=== PATIENT | female | born 1995 | race American Indian/Alaskan Native ===

== ENCOUNTER 2016-10-06 08:48 | Inpatient (IN) | payer MEDICAID ==
[2016-10-06] MEDS ORDERED: MINERAL OIL PO PRN (09:16)
[2016-10-06] MEDS ORDERED: ePHEDrine SULFATE IV PRN (09:16)
[2016-10-06] MEDS ORDERED: SUBLIMAZE IV PRN (09:16)
[2016-10-06] MEDS ORDERED: BRETHINE SUB-Q PRN (09:16)
[2016-10-06] MEDS ORDERED: BRETHINE IVP PRN (09:16)
[2016-10-06] MEDS ORDERED: POLYCILLIN/NS 2 GM/100 ML 100 ML IV ONE (09:16)
[2016-10-06] MEDS ORDERED: MYLICON PO PRN (09:21)
[2016-10-06] MEDS ORDERED: PITOCin/NS 20 UNIT/1000ML DRIP 1,000 ML IV SCH (10:00)
[2016-10-06] MEDS ORDERED: PITOCin/NS 30 UNIT/500ML 500 ML IV SCH (10:00)
[2016-10-06] MEDS: LACTATED RINGERS 1,000 ML IV SCH ×3 (10:12→15:45)
[2016-10-06 10:21] LABS: Hematocrit 32.7 % (30.3-42.9); Hemoglobin 10.3 gm/dl (10.1-14.3); Mean Corpuscular HGB Conc 32 % (30-34); Mean Corpuscular Hemoglobin 22 pg (28-32); Mean Corpuscular Volume 71 fl (79-97); Platelet Count 298 K/mm3 (140-440); Red Blood Count 4.62 M/mm3 (3.65-5.03); Red Cell Distribution Width 17.8 % (13.2-15.2); White Blood Count 11.9 K/mm3 (4.5-11.0)
[2016-10-06 10:32] LABS: Alanine Aminotransferase 11 units/L (7-56)
[2016-10-06] MEDS ORDERED: CYTOTEC VG PRN (12:00)
--- NOTE | 2016-10-06 12:26 | Ultrasound Report ---
Limited OB ultrasound: There is a renner gestation in cephalic position with a heart rate of 136 beats per minute. The estimated gestational ages 41 weeks 5 days. No other information supplied.
[2016-10-06] MEDS: POLYCILLIN/NS 1 GM/50 ML 50 ML IV SCH (15:44)
[2016-10-06 15:52] LABS: Bilirubin,Urine NEG (Negative); Blood,Urine SM (Negative); Ketones,Urine TR mg/dL (Negative); Leukocyte Esterase,Urine TR (Negative); Mucus,Urine FEW /HPF; Nitrite,Urine NEG (Negative); Protein,Urine <15 mg/dL mg/dL (Negative); RBC,Urine < 1.0 /HPF (0.0-6.0); Urobilinogen,Urine < 2.0 mg/dL (<2.0)
--- NOTE | 2016-10-06 16:41 | History and Physical Report ---
History of Present Illness Date of examination: 10/06/16 Date of admission: 10/06/16 08:48 History of present illness: 21 yo EDC 09/24/16 by 11 week U/S @ 41.5 weeks gestation presented this am for induction of labor for postdates. Arrived and unit full, no beds for induction available on admit and at time of H&P. Continuous FM throughout with Category 1 tracing. First trimester entry into care at 11.5 weeks gestation. course complicated by morbid obesity with eary GCT of 106, anemia with iron BID and ecoli UTI with Macrobid, she is GBS positive and has received adequate prophylaxis On admit RN exam closed/thick/-4, unknown presentation. U/s confirmed cephalic presentation. 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 Family/Genetic History: none Social history: no significant social history - Obstetrical History Expected Date of Delivery: 09/24/16 Actual Gestation: 41 Week(s) 5 Day(s) : 3 Para: 2 Hx # Term Pregnancies: 2 Number of Pregnancies: 0 Number of Living Children: 2 Medications and Allergies Allergies Allergy/AdvReac Type Severity Reaction Status Date / Time No Known Allergies Allergy Verified 09/19/16 15:47 Home Medications Medication Instructions Recorded Confirmed Last Taken Type No Known Home Medications [No 09/19/16 09/19/16 Unknown History Reported Home Medications] Active Meds: Active Medications Butorphanol Tartrate (Stadol) 2 mg IV Q2H PRN PRN Reason: Pain , Severe (7-10) Fentanyl (Sublimaze) 100 mcg IV Q2H PRN PRN Reason: Labor Pain Ampicillin Sodium (Polycillin/Ns 1 Gm/50 Ml) 50 mls @ 100 mls/hr IV Q4HR KELLY PRN Reason: Protocol Last Admin: 10/06/16 15:44 Dose: 100 mls/hr Lactated Ringer's (Lactated Ringers) 1,000 mls @ 125 mls/hr IV DIRECT KELLY Last Admin: 10/06/16 15:45 Dose: 125 mls/hr Oxytocin/Sodium Chloride (Pitocin/Ns 20 Unit/1000ml Drip) 1,000 mls @ 125 mls/ hr IV DIRECT KELLY Oxytocin/Sodium Chloride (Pitocin/Ns 30 Unit/500ml) 500 mls @ 2 mls/hr IV TITR KELLY PRN Reason: Protocol Oxytocin/Sodium Chloride (Pitocin/Ns 30 Unit/500ml) 500 mls @ 1 mls/hr IV TITR KELLY; 1 MILLIUNITS/MIN PRN Reason: Protocol Mineral Oil (Mineral Oil) 30 ml PO QHS PRN PRN Reason: Constipation Misoprostol (Cytotec) 25 mcg VG Q4H PRN PRN Reason: Labor Induction Simethicone (Mylicon) 80 mg PO Q6H PRN PRN Reason: Gas pain Review of Systems All systems: negative Genitourinary: deferred - Vital Signs Vital signs: Vital Signs Pulse BP 77 113/57 10/06/16 09:27 10/06/16 09:27 Temp Pulse Resp BP Pulse Ox 98.2 F 81 20 110/56 83 L 10/06/16 09:30 10/06/16 15:49 10/06/16 09:30 10/06/16 15:49 10/06/16 15:32 - Physical Exam Lungs: Positive: Normal air movement Abdomen: Positive: normal appearance - Obstetrical FHR: category 1 Uterine Contraction Monitor Mode: External Cervical Dilatation: 0 Cervical Effacement Percentage: 0 station: -4 Uterine Contraction Pattern: Absent Uterine Tone Measurement Phase: Resting Results Result Diagrams: 10/06/16 10:10 10/06/16 10:10 Abnormal lab results 10/06/16 10/06/16 Range/Units 10:10 10:10 WBC 11.9 H (4.5-11.0) K/mm3 MCV 71 L (79-97) fl MCH 22 L (28-32) pg RDW 17.8 H (13.2-15.2) % Creatinine 0.6 L (0.7-1.2) mg/dL All other labs normal. Assessment and Plan IUP at 41.5 weeks gestation Anemia Unfavorable Cervix Cephalic Presentation +GBS-Adequate treatment +HSV2-no lesions or prodrome Unfavorable Cervix Morbid Obesity P: Cytotec per order
[2016-10-06] MEDS ORDERED: AMBIEN PO PRN (16:45)
[2016-10-06 21:42] LABS: Lactate Dehydrogenase 178 units/L (91-180); Uric Acid 5.3 mg/dL (3.5-7.6)
[2016-10-07] MEDS: POLYCILLIN/NS 1 GM/50 ML 50 ML IV SCH ×5 (00:24→18:28)
[2016-10-07] MEDS: CYTOTEC VG PRN ×3 (00:24→04:16)
[2016-10-07] MEDS: LACTATED RINGERS 1,000 ML IV SCH ×4 (04:25→19:25)
[2016-10-07] MEDS: PITOCin/NS 30 UNIT/500ML 500 ML IV SCH ×7 (08:57→14:30)
[2016-10-07] MEDS: STADOL IV PRN ×3 (11:37→16:00)
[2016-10-07] MEDS ORDERED: ePHEDrine SULFATE ONE (19:56)
[2016-10-07] MEDS ORDERED: ePHEDrine SULFATE IV PRN (20:12)
[2016-10-07] MEDS ORDERED: NARCAN 2 MG/2 ML IV PRN (20:12)
--- NOTE | 2016-10-07 20:12 | Anesthesia Consultation ---
Anesthesia Consult and Med Hx Date of service: 10/07/16 - Airway Anesthetic Teeth Evaluation: Good ROM Head & Neck: Adequate Mental/Hyoid Distance: Adequate Mallampati Class: Class II Intubation Access Assessment: Good - Pulmonary Exam CTA: Yes - Cardiac Exam Cardiac Exam: No Murmur - Pre-Operative Health Status ASA Pre-Surgery Classification: ASA2 Proposed Anesthetic Plan: Epidural - Pulmonary Hx Asthma: Yes (no meds) COPD: No Hx Pneumonia: No - Cardiovascular System Hx Hypertension: No - Central Nervous System Hx Seizures: No Hx Psychiatric Problems: No - Endocrine Hx Renal Disease: No Hx End Stage Renal Disease: No Hx Hypothyroidism: No Hx Hyperthyroidism: No - Hematic Hx Anemia: No Hx Sickle Cell Disease: No - Other Systems Hx Alcohol Use: No
[2016-10-07] MEDS ORDERED: fentaNYL-BUPIV 2 MCG/ML-0.125% 100 ML EPIDURAL SCH (21:00)
--- NOTE | 2016-10-07 22:06 | Procedure Note ---
OB Delivery Note - Delivery Date of Delivery: 10/07/16 Surgeon: ILDEFONSO REGALADO Estimated blood loss: other (400ml) - Vaginal Delivery presentation: vertex Delivery position: OA Intrapartum events: none Delivery induction: oxytocin Delivery monitor: external FHT, internal uterine Route of delivery: Delivery placenta: expressed Delivery cord: 3 umbilical vessels Episiotomy: none Delivery laceration: none Anesthesia: epidural - A at 1 minute: 8 at 5 minutes: 9 Gender: Male (wt 8-10, placenta very adherent and appears unusally small , sent to pathology . pt informed that if there is any retained placenta a D & C may be necessary. pt verbalized understanding)
[2016-10-07] MEDS ORDERED: PHENERGAN PR PRN (23:32)
[2016-10-07] MEDS ORDERED: DERMOPLAST TP PRN (23:32)
[2016-10-07] MEDS ORDERED: DULCOLAX PR PRN (23:32)
[2016-10-07] MEDS ORDERED: PHENERGAN PO PRN (23:32)
[2016-10-07] MEDS ORDERED: MILK OF MAGNESIA PO PRN (23:32)
[2016-10-07] MEDS ORDERED: BENADRYL PO PRN (23:32)
[2016-10-07] MEDS ORDERED: LANSINOH TP PRN (23:32)
[2016-10-07] MEDS ORDERED: SODIUM CHLORIDE FLUSH SYRINGE 10 ML IV NR (23:32)
[2016-10-07] MEDS ORDERED: PITOCin/NS 20 UNIT/1000ML DRIP 1,000 ML IV SCH (23:32)
[2016-10-07] MEDS ORDERED: ZOFRAN IV PRN (23:32)
[2016-10-07] MEDS ORDERED: TYLENOL PO PRN (23:32)
[2016-10-07] MEDS ORDERED: PERCOCET 5/325 PO PRN (23:32)
[2016-10-07] MEDS ORDERED: TUCKS PAD TP PRN (23:32)
[2016-10-07] MEDS: MOTRIN PO SCH (23:46)
[2016-10-08] MEDS: MOTRIN PO SCH ×4 (06:01→23:57)
--- NOTE | 2016-10-08 07:50 | Progress Note ---
Assessment and Plan ppd 1 s/p . will d/c home tomorrow if stable Subjective - Subjective Date of service: 10/08/16 Principal diagnosis: post date delivered via Interval history: Routine pp care Patient reports: appetite normal, voiding normally, pain well controlled [place]: doing well Objective - Vital Signs Latest vital signs: Vital Signs Temp Pulse Pulse Resp BP BP Pulse Ox 10/08/16 04:30 98.6 F 93 H 20 99/50 10/08/16 00:00 98.8 F 80 20 116/55 10/07/16 23:46 18 10/07/16 23:23 79 111/57 10/07/16 23:08 88 117/60 10/07/16 22:53 111 H 113/59 10/07/16 22:38 110 H 132/87 10/07/16 22:23 88 107/63 10/07/16 22:13 98.3 F 20 10/07/16 22:08 96 H 112/69 10/07/16 21:59 78 111/58 10/07/16 21:39 71 132/58 10/07/16 21:27 64 100 10/07/16 21:25 71 121/57 10/07/16 21:22 69 100 10/07/16 21:17 93 H 100 10/07/16 21:12 68 100 10/07/16 21:08 65 102/51 10/07/16 21:07 63 100 10/07/16 21:02 63 100 10/07/16 20:57 68 100 10/07/16 20:53 70 100/50 10/07/16 20:52 68 100 10/07/16 20:47 64 100 10/07/16 20:42 66 100 10/07/16 20:37 65 100 10/07/16 20:32 68 100 10/07/16 20:27 63 100 10/07/16 20:22 68 100 10/07/16 20:21 71 104/48 10/07/16 20:18 68 143/49 10/07/16 20:17 93 H 100 10/07/16 20:15 79 122/66 10/07/16 20:13 100 H 124/61 10/07/16 20:12 92 H 100 10/07/16 20:11 90 137/64 10/07/16 20:09 111 H 154/92 10/07/16 20:08 125 H 113/54 10/07/16 20:07 127 H 96 10/07/16 20:05 137 H 122/57 10/07/16 20:03 109 H 121/59 10/07/16 20:02 97 H 92 10/07/16 20:01 103 H 131/70 10/07/16 19:59 93 H 129/68 10/07/16 19:57 88 127/67 100 10/07/16 19:55 94 H 127/69 10/07/16 19:53 100 H 131/75 10/07/16 19:52 89 98 10/07/16 19:51 90 130/68 10/07/16 19:49 72 147/73 10/07/16 19:47 102 H 138/64 99 10/07/16 19:45 94 H 137/59 10/07/16 19:43 96 H 150/69 10/07/16 19:42 103 H 100 10/07/16 19:41 110 H 152/71 10/07/16 19:39 117 H 157/89 10/07/16 19:37 108 H 100 10/07/16 19:32 92 H 100 10/07/16 19:29 97.9 F 22 10/07/16 19:08 84 152/76 10/07/16 18:39 18 10/07/16 18:09 78 121/59 10/07/16 17:09 83 124/63 10/07/16 16:15 79 101/51 10/07/16 15:08 78 112/56 10/07/16 14:32 69 114/54 10/07/16 14:09 75 123/62 10/07/16 14:06 74 114/58 10/07/16 13:17 68 136/85 10/07/16 13:07 60 132/72 10/07/16 12:35 66 133/81 10/07/16 12:08 64 133/64 10/07/16 11:08 59 L 117/62 10/07/16 10:52 57 L 118/56 10/07/16 09:27 57 L 116/61 10/07/16 09:07 73 96/51 10/07/16 08:58 98.1 F 68 68 20 94/50 94/50 10/07/16 08:07 62 109/61 Intake and Output 10/07/16 10/08/16 10/08/16 22:59 06:59 14:59 Intake Total 1050 2467 Output Total 150 50 Balance 900 2417 Intake: IV 1050 2467 Polycillin/Ns 1 gm/50 ml 50 50 ml @ 100 mls/hr IV Q4HR KELLY Rx#:[id number] Lactated Ringers 1,000 ml 1000 1100 @ 125 mls/hr IV DIRECT KELLY Rx#:[id number] PITOCin/NS 20 UNIT/1000ML 867 DRIP 1,000 ML @ 125 mls/ hr IV DIRECT KELLY Rx#: [id number] PITOCin/NS 30 UNIT/500ML 500 500 ML @ 1 MILLIUNITS/MIN 1 mls/hr IV TITR KELLY Rx# :[id number] Output: Urine 150 50 Void 150 50 Other: Total, Output Amount 150 50 Estimated Blood Loss 400 - Exam Breasts: Present: deferred Cardiovascular: Present: Regular rate, Normal S1, Normal S2 Lungs: Present: Clear to auscultation Abdomen: Present: normal appearance, soft Vulva: both: normal Uterus: Present: normal, firm Extremities: Present: normal Deep Tendon Reflex Grade: Normal +2 Incision: Present: normal, dry, intact
--- NOTE | 2016-10-08 07:54 | Discharge Summary ---
Providers - Providers Date of Admission: 10/06/16 08:48 Date of discharge: 10/09/16 Attending physician: BJORN ALFRED MD Primary care physician: ILDEFONSO DON Hospitalization Reason for admission: induction of labor Delivery: Procedure details: s/p . doing well. Episiotomy: none Laceration: none Other procedures: none complications: none Discharge diagnosis: IUP at term delivered [place] baby: male Hospital course: routine pp course Condition at discharge: Good Disposition: DISCHARGED TO HOME OR SELFCARE - Discharge Diagnoses (1) Post-dates , delivered, current hospitalization Status: Acute (2) (normal spontaneous vaginal delivery) Status: Acute (3) Anemia Status: Acute Comment: secondary to the blood loss at delivery Plan - Discharge Medications Prescriptions: Ferrous Sulfate [Feosol 325 MG tab] 325 mg PO BID #60 tablet Ibuprofen [Motrin 800 MG tab] 800 mg PO Q8HR PRN #30 tablet PRN Reason: Pain oxyCODONE /ACETAMINOPHEN [Percocet 5/325] 1 tab PO Q6HR PRN #30 tablet PRN Reason: Pain - Provider Discharge Summary Activity: routine, no sex for 6 weeks, no heavy lifting 4 weeks, no strenuous exercise Diet: routine Instructions: routine Additional instructions: [] Smoking cessation referral if applicable(refer to patient education folder for contact #) [] Refer to [facility] Booklet Call your doctor immediately for: * Fever > 100.5 * Heavy vaginal bleeding ( >1 pad per hour) * Severe persistent headache * Shortness of breath * Reddened, hot, painful area to leg or breast * Drainage or odor from incision. * Keep incision clean and dry at all times and follow doctor's instructions regarding bathing/showering - Follow up plan Follow up: ILDEFONSO DON MD [Primary Care Provider] - 6 Weeks
[2016-10-08 11:06] LABS: Hematocrit 23.6 % (30.3-42.9); Hemoglobin 7.4 gm/dl (10.1-14.3)
[2016-10-08] MEDS ORDERED: FEOSOL PO SCH (14:00)
[2016-10-09] MEDS: MOTRIN PO SCH (06:09)
[2016-10-09 08:19] VITALS: BP 133/55
== END 2016-10-09 13:00 | disposition home or self-care (01) | DRG 775 ==
LOC: APU 08:48 → LD 18:55 → OB 10-08 00:24
PROVIDERS: ADMIT Obstetrics & Gynecology; ATTEND Obstetrics & Gynecology
PROC: 10E0XZZ Delivery of Products of Conception, External Approach (ICD-10-PCS; principal; 2016-10-07)
PROC: 3E033VJ Introduction of Other Hormone into Peripheral Vein, Percutaneous Approach (ICD-10-PCS; 2016-10-07)
PROC: 3E0S3CZ (ICD-10-PCS; 2016-10-07)
PROC: 3E033VJ Introduction of Other Hormone into Peripheral Vein, Percutaneous Approach (ICD-10-PCS; 2016-10-07)
PROC: 00HU33Z Insertion of Infusion Device into Spinal Canal, Percutaneous Approach (ICD-10-PCS; 2016-10-07)
DX: O48.0 Post-term pregnancy (principal); O99.214 Obesity complicating childbirth; E66.01 Morbid (severe) obesity due to excess calories; O99.52 Diseases of the respiratory system complicating childbirth; J45.909 Unspecified asthma, uncomplicated; O32.9XX0 Maternal care for malpresentation of fetus, unspecified, not applicable or unspecified; B00.9 Herpesviral infection, unspecified; D62 Acute posthemorrhagic anemia; Z68.43 Body mass index [BMI] 50.0-59.9, adult; Z3A.41 41 weeks gestation of pregnancy; Z37.0 Single live birth; O99.019 Anemia complicating pregnancy, unspecified trimester; D64.9 Anemia, unspecified; O23.40 Unspecified infection of urinary tract in pregnancy, unspecified trimester; O99.820 Streptococcus B carrier state complicating pregnancy; O98.519 Other viral diseases complicating pregnancy, unspecified trimester
CPT/HCPCS: 36415; 76815; 81001; 82565; 83615; 84450; 84460; 84550; 85014; 85018; 85027; 86850; 86900; 86901; 88307; J0290; J0595; J2590; J3010; J7120

== ENCOUNTER 2016-10-11 08:27 | Inpatient (IN) | payer MEDICAID ==
[2016-10-11 09:16] LABS: Basophils % (Auto) 0.3 % (0.0-1.8); Eosinophils % (Auto) 1.7 % (0.0-4.3); Hematocrit 21.2 % (30.3-42.9); Hemoglobin 6.7 gm/dl (10.1-14.3); Mean Corpuscular HGB Conc 31 % (30-34); Mean Corpuscular Volume 73 fl (79-97); Platelet Count 264 K/mm3 (140-440); Red Blood Count 2.93 M/mm3 (3.65-5.03); Red Cell Distribution Width 17.4 % (13.2-15.2); White Blood Count 19.1 K/mm3 (4.5-11.0)
[2016-10-11 09:19] LABS: Mean Corpuscular Hemoglobin 23 pg (28-32)
[2016-10-11] MEDS ORDERED: NACL 0.9% 500 ML 500 ML IV ONE (10:10)
--- NOTE | 2016-10-11 10:32 | Emergency Department Report ---
HPI - General Chief Complaint: Vaginal Bleeding Time Seen by Provider: 10/11/16 10:05 - HPI HPI: This is a 21-year-old [place]ian female presents to the emergency department with complaint of vaginal bleeding and "something in my vagina" for the past 2 days. The patient gave via vaginal delivery 4 days ago and was discharged 2 days ago. She is currently . There were no previous Complications with the or delivery. She said that yesterday morning all of a sudden she felt some pressure in the vagina and tried to feel was in there and it felt more like tissue. Since that time she has had a moderate amount of vaginal bleeding and has gone through 3 pads already today. She denies any chest pain, shortness of breath, headache, vision change, fever, nausea or vomiting. She is not taken anything for symptoms prior to presentation. She follows with [facility]. ED Past Medical Hx - Past Medical History Previous Medical History?: Yes Hx Hypertension: No Hx Congestive Heart Failure: No Hx Diabetes: No Hx Deep Vein Thrombosis: No Hx Renal Disease: No Hx Sickle Cell Disease: No Hx Seizures: No Hx Asthma: Yes (no meds) Hx COPD: No Hx HIV: No Additional medical history: Vaginal delivery x 3 - Surgical History Past Surgical History?: No - Social History Smoking Status: Never Smoker Substance Use Type: Prescribed - Medications Home Medications: Home Medications Medication Instructions Recorded Confirmed Last Taken Type No Known Home Medications [No 10/11/16 10/11/16 Unknown History Reported Home Medications] ED Review of Systems ROS: Stated complaint: PAIN/BLEEDING/FB OUT OF VAGINA Other details as noted in HPI Comment: All other systems reviewed and negative Constitutional: denies: chills, fever Eyes: denies: eye pain, eye discharge, vision change ENT: denies: ear pain, throat pain Respiratory: denies: cough, shortness of breath, wheezing Cardiovascular: denies: chest pain, palpitations Gastrointestinal: denies: abdominal pain, nausea, diarrhea Genitourinary: other (vaginal bleeding). denies: urgency, discharge Musculoskeletal: denies: back pain, joint swelling, arthralgia Skin: denies: rash, lesions Neurological: denies: headache, weakness, paresthesias Physical Exam - Physical Exam Vital Signs: Vital Signs 10/11/16 10/11/16 08:32 10:19 Temperature 99 F Pulse Rate 112 H 85 Respiratory 20 18 Rate Blood Pressure 160/99 Blood Pressure 138/85 [Left] O2 Sat by Pulse 100 100 Oximetry Physical Exam: GENERAL: The patient is well-developed well-nourished. HEENT: Normocephalic. Atraumatic. Extraocular motions are intact. Patient has moist mucous membranes. Pupils equal reactive to light bilaterally. NECK: Supple. Trachea is midline. CHEST/LUNGS: Clear to auscultation. There is no respiratory distress noted. HEART/CARDIOVASCULAR: Regular. There is no tachycardia. There is no gallop rub or murmur. ABDOMEN: Abdomen is soft, nontender. Patient has normal bowel sounds. There is no abdominal distention. SKIN: There is no rash. There is no edema. There is no diaphoresis. NEURO: The patient is awake, alert, and oriented. The patient is cooperative. The patient has no focal neurologic deficits. The patient has normal speech and gait. MUSCULOSKELETAL: There is no tenderness or deformity. There is no limitation range of motion. There is no evidence of acute injury. : There is mild to moderate bright red blood seen in the vaginal vault. There is a large area of tissue seen in the vagina that is not definitively identifiable but has an appearance consistent with placental tissue. ED Course Vital Signs 10/11/16 10/11/16 08:32 10:19 Temperature 99 F Pulse Rate 112 H 85 Respiratory 20 18 Rate Blood Pressure 160/99 Blood Pressure 138/85 [Left] O2 Sat by Pulse 100 100 Oximetry - Consultations Consultation #1: I spoke with Dr. Tran of [facility] and she is agreed with the admission for the patient to their service. However Dr. Elena is medical oncologist and make him to the emergency department to do a pelvic or physical examination. In the meantime, Dr. Tran is asked for a transvaginal ultrasound for further evaluation. 10/11/16 11:11 ED Medical Decision Making - Lab Data Result diagrams: 10/11/16 09:01 10/11/16 10:19 - Medical Decision Making 21-year-old female who is 4 days status post vaginal delivery presents with some type of tissue or foreign body the vagina and a large amount of vaginal bleeding. Patient's labs are abnormal as the patient has a hemoglobin of 6.7 and a leukocytosis of 19,000. 2 units of packed red blood cells were ordered for transfusion. On physical exam there does appear to be some type of tissue, but no foreign body, seen in the vagina but does appear consistent with placenta. After seeing this, I went back and looked in the reports of the vaginal delivery and there was some concern at that time that there was a unusually small placenta seen and that there could be a possibility of some retained tissue. Once again, the tissue in the vagina is not definitively identifiable but along with the patient's vaginal bleeding and low hemoglobin, she will need admission. Dr. Tran is aware and has accepted the patient for admission. A transvaginal ultrasound has been ordered. - Differential Diagnosis retained products of conception, vaginal laceration, prolapsed uterus, fore Critical Care Time: No Critical care attestation.: If time is entered above; I have spent that time in minutes in the direct care of this critically ill patient, excluding procedure time. ED Disposition Clinical Impression: Complications following delivery, Retained products of conception, Vaginal bleeding, Blood loss anemia Disposition: OP ADMITTED IP TO THIS HOSP Is pt being admited?: Yes Does the pt Need Aspirin: No Condition: Stable Time of Disposition: 11:32
[2016-10-11 10:43] LABS: Anion Gap 19 mmol/L; Blood Urea Nitrogen 8 mg/dL (7-17); Calcium 8.4 mg/dL (8.4-10.2); Carbon Dioxide 23 mmol/L (22-30); Chloride 100.4 mmol/L (98-107); Glucose 73 mg/dL (65-100); Potassium 3.8 mmol/L (3.6-5.0); Sodium 139 mmol/L (137-145)
[2016-10-11 11:04] LABS: Bilirubin,Urine NEG (Negative); Blood,Urine LG (Negative); Ketones,Urine NEG (Negative); Leukocyte Esterase,Urine LG (Negative); Nitrite,Urine NEG (Negative); Urobilinogen,Urine < 2.0 mg/dL (<2.0)
[2016-10-11 11:11] LABS: RBC,Urine > 182.0 /HPF (0.0-6.0)
[2016-10-11 11:12] LABS: WBC,Urine > 182.0 /HPF (0.0-6.0)
[2016-10-11] MEDS ORDERED: CYTOTEC VG ONE ×2 (11:16→12:00)
[2016-10-11] MEDS ORDERED: NARCAN 0.4 MG/1 ML IV PRN (11:17)
[2016-10-11] MEDS ORDERED: ROCEPHIN/NS 1 GM/50 ML 50 ML IV ONE (11:28)
[2016-10-11] MEDS ORDERED: TYLENOL PO ONE (11:33)
--- NOTE | 2016-10-11 11:38 | Admit Criteria Form ---
Admission Criteria Documentation: OBSTETRIC AND GYNECOLOGIC DISEASE GRG Clinical Indications for Admission to Inpatient Care (Place 'X' for any and all applicable criteria): Hospital admission is needed for appropriate care of the patient because of ANY ONE of the following (1)(2)(3): [ ]I. Hemodynamic instability, as indicated by ALL of the following (1)(2)(3)( 4)(5): [ ]a) Vital signs or other findings not as expected for chronic patient condition or baseline [ ]b) Instability indicated by ANY ONE of the following: [ ]i) Hypotension [ ]ii) Symptomatic tachycardia unresponsive to treatment (eg, analgesia, fluids, sedation as indicated) [ ]iii) Inadequate perfusion indicated by ANY ONE of the following: [ ]A. Lactic acidosis (greater than 2 mmol/ L) [ ]B. New abnormal capillary refill ( greater than 3 seconds) [ ]C. Reduced urine output [ ]D. New altered mental status [ ]iv) Orthostatic vital sign changes unresponsive to treatment (eg, fluids) [ ]v) Multiple IV fluid boluses required to maintain adequate blood pressure or perfusion [ ]vi) IV inotropic or vasopressor medication required to maintain adequate blood pressure or perfusion [ ]II. Obstetric infection requiring hospitalization indicated by ANY ONE of the following(13)(14): [ ]a) Chorioamnionitis [ ]b) Endometritis (except mild endometritis) [ ]c) Pelvic abscess [ ]d) Peritonitis [ ]e) Septic pelvic thrombophlebitis [ ]III. Amniotic fluid or pulmonary embolism(4)(5)(6) [ ]IV. Suspected peritonitis or ectopic requiring monitoring beyond scope of 24 hours or observation care(7)(8) [ ]V. compromise requiring hospitalization indicated by ALL of the following(9)(10): [ ]a) compromise indicated by ANY ONE of the following(11): [ ]i) Abnormal heart rate monitoring [ ]ii) Abnormal contraction stress test [ ]iii) Abnormal biophysical profile [ ]iv) Abnormal Doppler flow in vessels (ie, Doppler velocimetry) (12) [ ]b) Persistence of compromise indicators during evaluation and observation monitoring [ ]. Ovarian hyperstimulation syndrome requiring hospitalization[A] indicated by ALL of the following(15): [ ]a) Recent ovarian stimulation with gonadotropins, or evidence on ultrasound of spontaneous emergence of large number of ovarian follicles [ ]b) Evidence of severe ovarian hyperstimulation syndrome indicated by ANY ONE of the following: [ ]i) Abdominal pain unresponsive to oral therapy [ ]ii) Acute respiratory distress syndrome [ ]iii) Electrolyte imbalance ( eg, hyponatremia, hyperkalemia) [ ]iv) Elevated liver enzymes [ ]v) Evidence of thromboembolism [ ]vi) Hemoconcentration (hematocrit greater than 45 % (0.45)) [ ]vii) Inability to maintain oral intake adequate to prevent hemoconcentration [ ]viii) Marked hypotension from baseline (eg, SBP 20 mmHg below patients usual pressure) [ ]ix) Oliguria or anuria [ ]x) Ovarian torsion [ ]xi) Pleural or pericardial effusion on x-ray or echocardiogram [ ]xii) Rapid increase in serum creatinine to greater than 1.2 mg/dL (106 micromoles/L) or creatinine clearance less than 50 mL/min/1.73m2 (0.84 mL/ sec/1.73m2) [ ]xiii) Ruptured ovarian cyst with hemorrhage [ ]xiv) Severe abdominal pain or peritoneal signs [ ]xv) Tense ascites that cannot be managed with paracentesis in outpatient setting [ ]VII.Pelvic infection requiring hospitalization indicated by ANY ONE of the following (16): [ ]a) Outpatient treatment has failed or is not appropriate (eg, inpatient monitoring required) [ ]b) Pelvic abscess [ ]c) Surgical emergency cannot be excluded (eg, rigid abdomen) [ ]d) Vomiting precluding outpatient and observation care management VIII. loss complications requiring inpatient medical treatment indicated by ANY ONE of the following (4)(7)(9): [ ]a) Fever [ ]b) Peritonitis [ ]c) Sepsis [ ]d) Severe abdominal pain [ ]IX. or patient requiring monitoring for severe heart failure, pulmonary disease, or other comorbid condition (eg, peripartum cardiomyopathy) (4)(17) [ ]X. patient with rupture of membranes requiring hospitalization indicated by ANY ONE of the following: [ ]a) Chorioamnionitis, cloudy amniotic fluid, or other evidence of infection [ ]b) compromise or other need for monitoring (11) [ ]c) Gestation longer than 23 weeks and ANY ONE of the following: [ ]i) Abnormal (noncephalic) presentation [ ]ii) Inadequate home environment (eg, home too far from hospital, unable to rapidly return to hospital) [ ]d) Temperature greater than 100.4 degrees F (38 degrees C)( oral) [ ]e) Threatened labor requiring monitoring beyond scope (eg, over 24 hours) of observation Care [X ] XI. complications, including severe lacerations, infections, or retained placenta (19) [X ] XII.Uterine bleeding with high-risk features indicated by ANY ONE of the following (4): [X ]a) Active major hemorrhage (eg, hemorrhage) [ ]b) Coagulopathy with active bleeding [ ]c) Gestational trophoblastic disease (eg, molar ) (20 ) [ ]d) (longer than 23 weeks) and ANY ONE of the following: [ ]i) Pain [ ]ii) Placental abruption, known or suspected [ ]iii) Placenta accrete, known or suspected(21) [ ]iv) Placenta previa, known or suspected [ ]v) Vasa previa [ ]e) Severe anemia [ ]XIII. Obstetric or Gynecologic Disease, condition or symptom for which ANY ONE of the following: [ ]a) Emergency and observation care have failed or are not considered appropriate ( Also use General Criteria: Observation Care Criteria as appropriate) [ ]b) Presence of a General Admission Criteria or Pediatric General Admission Criteria The original [facility] [employer] 49 content created by [facility] has been revised. The portions of the content which have been revised are identified through the use of italic text or in bold, and [facility] has neither reviewed nor approved the modified material.All other unmodified content is copyright [facility]. Please see references footnoted in the original [facility] edition 2016 Admission Criteria Met: Yes
[2016-10-11] MEDS ORDERED: TYLENOL ONE (11:54)
[2016-10-11] MEDS ORDERED: PITOCin/NS 20 UNIT/1000ML DRIP 1,000 ML IV SCH (12:00)
[2016-10-11] MEDS ORDERED: SODIUM CHLORIDE FLUSH SYRINGE 10 ML IV SCH (12:00)
[2016-10-11] MEDS ORDERED: D5W/0.45% NACL/KCL 20 MEQ 1,000 ML IV SCH (12:00)
--- NOTE | 2016-10-11 12:55 | Ultrasound Report ---
ULTRASOUND PELVIC COMPLETE ULTRASOUND TRANSVAGINAL HISTORY: Vaginal bleeding, vaginal delivery 4 days ago. TECHNIQUE: Transabdominal and transvaginal ultrasound with color and spectral doppler interrogation. The uterus measures 20 x 9 x 10 cm. No uterine fibroids are appreciated. The endometrium is thickened and complex measuring up to 3 cm. The right ovary measures 3.1 x 1.9 x 3.4 cm. The left ovary measures 3.6 x 2.0 x 3.2 cm per no adnexal cyst or mass. No pelvic fluid collection. IMPRESSION: Complex and thickened endometrium measuring up to 3 cm. With the given history, retained products of conception should be considered. Please correlate with the patient's clinical presentation.
[2016-10-11] MEDS: MORPHINE IV PRN ×2 (14:23→19:34)
--- NOTE | 2016-10-11 15:09 | Event Note ---
Date: 10/11/16 (vaginal bleeding PP) This is a lady s/p vaginal delivery PPD#4 with vaginal bleeding. Us showed a 3cm tissue vs blood correlation with clinical findings. I evaluated patient and noted that she had minimal bleeding HCT 6 s/p 1 U prbc transfusing 2nd unit. A sterile speculum placed in vualt and noted large tissue at the os a ring forceps used to gengly grapsa yellow membrane tissue with several clots size of golf ball removed and sent to pathology. Excellent hemostasis noted. rocephin given and cytotoec 800 ug given. Pain meds 90 morphine). patient tolerated procedure well. will continue close observation.
[2016-10-11] MEDS ORDERED: NACL 0.9% 500 ML 500 ML ONE (19:27)
--- NOTE | 2016-10-11 23:04 | Event Note ---
Date: 10/11/16 Nurse called with elevated temperature of 103. During day patient had sustained low grade temperatures. Patient deneis any n,v,f, chills. she is tolerating diet and denies any pain VS T 103 CVS: RRR s1 s2 lungs CTA no wheezes no crackles abd: soft uterus fiome below umb ext: no c/c/ e no calf tenderness pelvic: min lochia ( discharge and retained POC was fouls smelling when removed suspect endomeyometiritis 1. tylenol q4 2. clind a and gent started 3. start ivf 4. continue monitor closely 5. cbc in am
[2016-10-12] MEDS: NACL 0.9% 1000 ML 1,000 ML IV SCH ×2 (00:02→18:40)
[2016-10-12] MEDS: CLEOCIN 900 MG/50 mL 50 ML IV SCH ×3 (00:03→16:16)
[2016-10-12 01:02] LABS: Hematocrit 27.6 % (30.3-42.9); Hemoglobin 8.8 gm/dl (10.1-14.3)
[2016-10-12] MEDS ORDERED: GARAMYCIN IV SCH (02:00)
[2016-10-12] MEDS ORDERED: NACL 0.9% IV SCH (02:00)
[2016-10-12] MEDS: MORPHINE IV PRN (02:13)
[2016-10-12] MEDS: MOTRIN PO PRN (09:13)
[2016-10-12] MEDS: NORCO 5/325 PO PRN (18:38)
[2016-10-13] MEDS: CLEOCIN 900 MG/50 mL 50 ML IV SCH ×2 (00:13→07:54)
[2016-10-13] MEDS: MOTRIN PO PRN (00:17)
[2016-10-13] MEDS: NORCO 5/325 PO PRN (00:18)
[2016-10-13] MEDS ORDERED: GARAMYCIN 400 MG in NACL 0.9% 100 ML IV SCH (06:00)
[2016-10-13 08:56] VITALS: BP 104/72
--- NOTE | 2016-10-13 09:12 | Progress Note ---
Assessment and Plan A: Retained Placenta, PPH s/p blood transfusion, Endometritis afebrile for 24 hrs P: Discharge today on Augmentin with follow up in 2 wks. Subjective - Subjective Date of service: 10/13/16 Principal diagnosis: Retained placenta, PPH, Endometritis Interval history: Pt denies fever and chills and desires to go home. Patient reports: appetite normal, voiding normally, pain well controlled, flatus , ambulating normally, no nauseated Objective - Vital Signs Latest vital signs: Vital Signs Temp Pulse Pulse Resp BP BP 10/13/16 07:27 97.9 F 76 20 104/72 10/13/16 06:10 98.4 F 59 L 18 120/76 10/13/16 01:35 97.5 F L 63 20 129/68 10/12/16 21:05 98.9 F 79 20 133/62 10/12/16 16:39 98.4 F 73 18 114/55 10/12/16 12:08 97.7 F Intake and Output 10/12/16 10/13/16 10/13/16 22:59 06:59 14:59 Intake Total 1520 1185 Output Total 800 600 Balance 720 585 Intake: IV 800 825 CLEOCIN 900 MG/50 mL 50 50 50 ML @ 100 mls/hr IV Q8H KELLY Rx#:[id number] NaCl 0.9% 1000 ml 1,000 600 600 ml @ 75 mls/hr IV DIRECT KELLY Rx#:[id number] Garamycin 400 mg In NaCl 100 0.9% 100 ml @ 110 mls/hr IV Q24H KELLY Rx#:[id number] Right Forearm 150 75 Oral 600 Intake, Free Water 120 360 Output: Urine 800 600 Void 800 600 Other: Total, Intake Amount 360 Total, Output Amount 200 600 # Bowel Movements 1 - Exam Breasts: Present: deferred Cardiovascular: Present: Regular rate Lungs: Present: Clear to auscultation Abdomen: Present: soft (obese) Uterus: Present: fundal height below umbilicus Extremities: Present: normal
--- NOTE | 2016-10-13 09:17 | Discharge Summary ---
Providers - Providers Date of Admission: 10/12/16 09:17 Date of discharge: 10/13/16 Attending physician: YOLANDA ARAUJO Primary care physician: SCI[employer] WRITER Hospitalization Reason for admission: other (Retained placenta, PPH, symptomatic anemia, endometritis ) Procedure details: Pt was admitted for blood transfusion, removal of retained placenta and IV antibiotics. Hospital course: Pt underwent removal of retained placenta, had blood transfusion and IV antibiotics. She was observed until she was afebrile for greater than 24 hours. She was discharged home with IV antibiotics. Condition at discharge: Stable Disposition: DISCHARGED TO HOME OR SELFCARE - Discharge Diagnoses (1) Blood loss anemia Status: Acute (2) Complications following delivery Status: Acute (3) Retained products of conception Status: Acute (4) Vaginal bleeding Status: Acute (5) Anemia Status: Acute Qualifiers: Anemia type: other cause Comment: secondary to the blood loss at delivery (6) endometritis Status: Acute Plan - Discharge Medications Prescriptions: Amoxicillin/K Clav Tab [Augmentin 875 mg] 1 tab PO Q12HR #14 tab - Provider Discharge Summary Activity: routine Diet: routine Instructions: routine Additional instructions: [] Smoking cessation referral if applicable(refer to patient education folder for contact #) [] Refer to [facility]'s [facility] Booklet Call your doctor immediately for: * Fever > 100.5 * Heavy vaginal bleeding ( >1 pad per hour) * Severe persistent headache * Shortness of breath * Reddened, hot, painful area to leg or breast * Drainage or odor from incision. * Keep incision clean and dry at all times and follow doctor's instructions regarding bathing/showering - Follow up plan Follow up: JADEN ANDRES CNM [Advanced Practice Nurse] - 7 Days
--- NOTE | 2016-10-13 09:49 | Progress Note ---
Assessment and Plan O: temp 103.1 at [place] [facility] AF continues on clin/gent IV infiltrated A: MD consult Continue IV abx Subjective - Subjective Date of service: 10/13/16 (late entry, patient note from 10/12/16) Principal diagnosis: Retained placenta, PPH, Endometritis Patient reports: appetite normal, voiding normally, pain well controlled (c/o lower back pain), ambulating normally [place]: doing well, other (at home, encouraged rooming in) Objective - Vital Signs Latest vital signs: Vital Signs Temp Pulse Pulse Resp BP BP 10/13/16 07:27 97.9 F 76 20 104/72 10/13/16 06:10 98.4 F 59 L 18 120/76 10/13/16 01:35 97.5 F L 63 20 129/68 10/12/16 21:05 98.9 F 79 20 133/62 10/12/16 16:39 98.4 F 73 18 114/55 10/12/16 12:08 97.7 F Intake and Output 10/12/16 10/13/16 10/13/16 22:59 06:59 14:59 Intake Total 1520 1185 Output Total 800 600 Balance 720 585 Intake: IV 800 825 CLEOCIN 900 MG/50 mL 50 50 50 ML @ 100 mls/hr IV Q8H KELLY Rx#:[id number] NaCl 0.9% 1000 ml 1,000 600 600 ml @ 75 mls/hr IV DIRECT KELLY Rx#:[id number] Garamycin 400 mg In NaCl 100 0.9% 100 ml @ 110 mls/hr IV Q24H KELLY Rx#:[id number] Right Forearm 150 75 Oral 600 Intake, Free Water 120 360 Output: Urine 800 600 Void 800 600 Other: Total, Intake Amount 360 Total, Output Amount 200 600 # Bowel Movements 1 - Exam Breasts: Present: normal Lungs: Present: Normal air movement Abdomen: Present: normal appearance, soft. Absent: distention, tenderness Vulva: both: normal (scant lochia) Uterus: Present: normal, firm, fundal height below umbilicus. Absent: bogginess , tenderness Extremities: Present: normal
== END 2016-10-13 11:38 | disposition home or self-care (01) | DRG 769 ==
LOC: ED 08:27 → OB 11:14 → OBSVTOIN 10-12 09:17
PROVIDERS: ADMIT Obstetrics & Gynecology; ATTEND Obstetrics & Gynecology
PROC: 10D17ZZ Extraction of Products of Conception, Retained, Via Natural or Artificial Opening (ICD-10-PCS; principal; 2016-10-11)
PROC: 30233N1 Transfusion of Nonautologous Red Blood Cells into Peripheral Vein, Percutaneous Approach (ICD-10-PCS; 2016-10-11)
DX: O72.2 Delayed and secondary postpartum hemorrhage (principal); D62 Acute posthemorrhagic anemia; O86.12 Endometritis following delivery; O90.81 Anemia of the puerperium
CPT/HCPCS: 36415; 76830; 76856; 80048; 81001; 85018; 85025; 86850; 86900; 86901; 86920; 87040; 87086; 88305; 99211; G0378; G0463; J0696; J1580; J2270; J7030; J7040; P9016